=== PATIENT | female | born 1985 | race Caucasian/White ===

== ENCOUNTER 2017-09-19 17:42 | Emergency (ER) | payer BC ==
[~2017-09-19] VITALS: Ht 162.5 cm; Wt 89.8 kg
[~2017-09-19 17:42] MED LIST: ASPI-COR81 M1 PO; FOLIC ACID1 MG PO; HEPARIN SOD U IJ; MOTRIN800 MG PO; PRENATAL1 TA1 PO; TRAMADOL HCL50 MG PO; VICODIN 5/500 505 MG PO; [UNRECOGNIZED DRUG - OTHER] IJ
[2017-09-19] MEDS ORDERED: FLONASE ALLERG9.9 ML NAS (18:05)
[2017-09-19] MEDS ORDERED: CLARITIN10 MG PO (18:05)
[2017-09-19] MEDS ORDERED: AMOXICILLIN500 M2 PO (18:05)
== END 2017-09-20 03:29 | disposition home or self-care (01) ==
LOC: ED 17:42
DX: H66.91 Otitis media, unspecified, right ear (principal); R03.0 Elevated blood-pressure reading, without diagnosis of hypertension; Z79.899 Other long term (current) drug therapy; Z79.82 Long term (current) use of aspirin

== ENCOUNTER 2018-10-07 04:17 | Emergency (ER) | payer BC ==
[~2018-10-07 04:17] MED LIST changes: +AMOXICILLIN500 M2 PO; +CLARITIN10 MG PO; +FLONASE ALLERG9.9 ML NAS
[2018-10-07] MEDS ORDERED: ULTRAM50 MG PO (04:53)
[2018-10-07] MEDS ORDERED: CIPRODEX 0.3%-7.5 ML OT (04:53)
[2018-10-07] MEDS ORDERED: LEVOFLOXACIN500 MG PO (04:53)
== END 2018-10-07 05:06 | disposition home or self-care (01) ==
LOC: ED 04:17
DX: H60.311 Diffuse otitis externa, right ear (principal); Z79.899 Other long term (current) drug therapy; Z79.82 Long term (current) use of aspirin

== ENCOUNTER 2022-01-03 15:34 | Emergency (ER) | payer OTHER ==
[~2022-01-03 15:34] MED LIST changes: +CIPRODEX 0.3%-7.5 ML OT; +LEVOFLOXACIN500 MG PO; +ULTRAM50 MG PO
== END 2022-01-03 17:24 | disposition home or self-care (01) ==
LOC: ED 15:34
DX: S01.511A Laceration without foreign body of lip, initial encounter (principal); Z79.899 Other long term (current) drug therapy; Z79.82 Long term (current) use of aspirin; W22.8XXA Striking against or struck by other objects, initial encounter; Y93.89 Activity, other specified; Y92.89 Other specified places as the place of occurrence of the external cause; Y99.8 Other external cause status

== ENCOUNTER → 2022-10-19 | Outpatient (CLI) | payer OTHER ==
[2022-10-26 17:06] LABS: TESTOSTERONE FREE, (DIRECT) 0.2 pg/mL (0.0-4.2)
== END | disposition home or self-care (01) ==
LOC: LAB 12:14
PROVIDERS: ATTEND Nurse Practitioner Women's Health
DX: N92.6 Irregular menstruation, unspecified (principal); R63.5 Abnormal weight gain

== ENCOUNTER → 2022-10-22 | Outpatient (CLI) | payer OTHER | END | disposition home or self-care (01) | LOC: US 10-19 13:00 | PROVIDERS: ATTEND Nurse Practitioner Women's Health | DX: N92.6 Irregular menstruation, unspecified (principal) ==

== ENCOUNTER → 2024-06-07 | Outpatient (CLI) | payer OTHER ==
[2024-06-07 17:42] LABS: BASO # 0.1 10*3/uL (0.0-0.1); BASO % 0.6 % (0.0-1.0); EOS # 0.5 10*3/uL (0.0-0.4); EOS % 4.6 % (1.0-4.0); MEAN CELL VOLUME 82.2 fl (81.0-99.0); MEAN CORPUSCULAR HGB 28.4 pg (27.0-31.0); MEAN CORPUSCULAR HGB CONC 34.5 g/dl (33.0-37.0); MEAN PLATELET VOLUME 9.7 fl (9.6-12.3); MONO # 0.8 10*3/uL (0.1-1.0); MONO % 7.2 % (3.0-9.0); NEUT # 6.9 10*3/uL (2.3-7.9); NEUT % 62.5 % (47.0-73.0); PLATELET COUNT AUTOMATED 334 10*3/uL (130-400); RED BLOOD COUNT 5.35 10*6/uL (4.10-5.10); RED CELL DISTRI WIDTH 13.6 % (0-14.5)
[2024-06-07 18:28] LABS: ALKALINE PHOSPHATASE 93 U/L (46-116); BUN 11 mg/dl (9-23); CHLORIDE 105 mmol/L (98-107); POTASSIUM 3.9 mmol/L (3.4-5.1); SGPT/ALT 39 U/L (5-49); TOTAL PROTEIN 7.7 gm/dL (6.0-8.0)
== END | disposition home or self-care (01) ==
LOC: LAB 17:09
PROVIDERS: Occupational Therapist; ATTEND Family Medicine
DX: K52.9 Noninfective gastroenteritis and colitis, unspecified (principal)